=== PATIENT | male | born 1965 | race Hispanic/Latino ===

== ENCOUNTER 2017-09-15 20:05 | Emergency (ER) | payer SELFPAY ==
[2017-09-15 20:59] LABS: #Basophils 0.1 thou/uL (0.0-0.2); #Eosinphils 0.6 thou/uL (0.0-0.7); #Lymphocytes 3.3 thou/uL (1.20-3.40); #Monocytes 0.9 thou/uL (0.11-0.59); #Neutrophils 5.6 thou/uL (1.40-6.50); %Basophils 0.7 % (0.0-1.0); %Eosinophils 5.4 % (0.0-10.0); %Lymphocytes 31.6 % (21.0-51.0); %Monocytes 8.5 % (0.0-10.0); Hematocrit 47.9 % (42.0-52.0); Mean Platelet Volume 6.7 fL (7.4-10.4); Red Blood Cell (RBC) Count 4.95 mill/uL (4.70-6.10); White Blood Cell (WBC) Count 10.5 thou/uL (4.8-10.8)
[2017-09-15 21:12] LABS: ALT (SGPT) 22 U/L (8-55); AST (SGOT) 24 U/L (5-34); Alkaline Phosphatase 114 U/L (40-150); Anion Gap 15 mmol/L (10-20); BUN (Urea Nitrogen) 15 mg/dL (8.4-25.7); Bilirubin, Total 0.3 mg/dL (0.2-1.2); Calc. Creatinine Clearance 0 mL/min (70-130); Calcium 9.2 mg/dL (7.8-10.44); Carbon Dioxide 22 mmol/L (22-29); Chloride 103 mmol/L (98-107); Estimated GFR-MDRD 83; Globulin 3.1 g/dL (2.4-3.5); Protein, Total 7.3 g/dL (6.0-8.3)
--- NOTE | 2017-09-15 21:52 | RAD ---
THREE VIEWS OF THE RIGHT LONG FINGER 09/15/17 INDICATION: Right middle finger pain for two months. COMPARISON: None. FINDINGS: No acute fracture or subluxation is evident. Soft tissues are normal appearing. No radiopaque foreig n body is noted. IMPRESSION: No acute osseous abnormality. POS: [facility]
== END 2017-09-15 22:09 | disposition home or self-care (01) ==
LOC: ERS 20:05
DX: S60.412A Abrasion of right middle finger, initial encounter (principal); R73.09 Other abnormal glucose; J43.9 Emphysema, unspecified; F17.210 Nicotine dependence, cigarettes, uncomplicated; X58.XXXA Exposure to other specified factors, initial encounter
CPT/HCPCS: 36415; 80053; 85025

== ENCOUNTER 2018-05-13 17:48 | Emergency (ER) | payer SELFPAY ==
[2018-05-13] MEDS ORDERED: Adacel (T-DAP) 0.5 ML VIAL ONE (19:53)
[2018-05-13] MEDS ORDERED: Lidocaine 1% (PF) 30 ML VIAL ONE (20:19)
== END 2018-05-13 21:20 | disposition home or self-care (01) ==
LOC: ERS 17:48
DX: S60.352A Superficial foreign body of left thumb, initial encounter (principal); F17.210 Nicotine dependence, cigarettes, uncomplicated; Z23 Encounter for immunization; Z71.6 Tobacco abuse counseling; W45.8XXA Other foreign body or object entering through skin, initial encounter
CPT/HCPCS: 90471; 90715; 99406; J2001

== ENCOUNTER 2018-06-08 21:34 | Emergency (ER) | payer SELFPAY ==
[2018-06-08] MEDS ORDERED: Lidocaine 1% PF 5 ML VIAL ONE (23:28)
[2018-06-09] MEDS ORDERED: Bacitracin Zinc 1 Packet ONE (01:38)
== END 2018-06-09 01:45 | disposition home or self-care (01) ==
LOC: ERS 21:34
DX: S91.211A Laceration without foreign body of right great toe with damage to nail, initial encounter (principal); F17.210 Nicotine dependence, cigarettes, uncomplicated; Z71.6 Tobacco abuse counseling; W01.0XXA Fall on same level from slipping, tripping and stumbling without subsequent striking against object, initial encounter
CPT/HCPCS: 11730; 11760; 99406; J2001

== ENCOUNTER 2018-08-24 09:20 | Emergency (ER) | payer SELFPAY | END 2018-08-24 10:13 | disposition left against medical advice (07) | LOC: ERS 09:20 | DX: Z53.21 Procedure and treatment not carried out due to patient leaving prior to being seen by health care provider (principal) ==

== ENCOUNTER 2019-06-26 15:24 | Emergency (ER) | payer SELFPAY | END 2019-06-26 18:29 | disposition left against medical advice (07) | LOC: ERS 15:24 | DX: Z53.21 Procedure and treatment not carried out due to patient leaving prior to being seen by health care provider (principal) ==